=== PATIENT | female | born 1955 | race Caucasian/White ===

== ENCOUNTER → 2016-03-14 | Outpatient (CLI) | payer OTHER | END | disposition home or self-care (01) | LOC: MMGSC 10:57 | PROVIDERS: ATTEND Family Medicine | DX: N39.0 Urinary tract infection, site not specified (principal) | CPT/HCPCS: 87086 ==

== ENCOUNTER → 2016-12-27 | Outpatient (CLI) | payer MEDICARE ==
[2016-12-27 19:25] LABS: Basophils % (A) 0 %; CH 29.6; CHCM 32.9; Eosinophils # (A) 0.2 k/uL (0-0.7); Eosinophils % (A) 4 %; HCT 43.5 % (34.0-46.0); HDW 2.34; HGB 14.4 gm/dL (11.4-16.0); Luc # (Auto) 0.11; Luc % (Auto) 2; Lymphocytes # (A) 2.1 k/uL (1.0-4.8); Lymphocytes % (A) 31 %; MCH 29.9 pg (25.0-35.0); MCV 90.4 fL (80.0-100.0); Mean Platelet Volume 7.2; Monocytes # (A) 0.3 k/uL (0-1.0); Monocytes % (A) 4 %; Neutrophils % (A) 59 %; RBC 4.82 m/uL (3.80-5.40); RDW 12.4 % (11.5-15.5); WBC 6.7 k/uL (3.8-10.6); WBC (Perox) 6.94
[2016-12-27 19:35] LABS: ALT 32 U/L (9-52); AST 21 U/L (14-36); Alkaline Phosphatase 68 U/L (38-126); Amylase 109 U/L (30-110); Anion Gap 7 mmol/L; Blood Urea Nitrogen 15 mg/dL (7-17); Calcium 9.6 mg/dL (8.4-10.2); Carbon Dioxide 28 mmol/L (22-30); Chloride 107 mmol/L (98-107); Cholesterol 264 mg/dL (<200); Glucose 94 mg/dL (74-99); HDL Cholesterol 72 mg/dL (40-60); Non-African American GFR(MDRD) >60 (>60 ml/min/1.73 sqM); Potassium 4.5 mmol/L (3.5-5.1); Sodium 142 mmol/L (137-145); Total Bilirubin 0.7 mg/dL (0.2-1.3); Total Protein 6.6 g/dL (6.3-8.2)
== END | disposition home or self-care (01) ==
LOC: MMGSC 10:24
PROVIDERS: ATTEND Family Medicine
DX: Z00.00 Encounter for general adult medical examination without abnormal findings (principal); R53.83 Other fatigue
CPT/HCPCS: 36415; 80053; 80061; 82150; 82306; 82607; 83690; 84439; 84443; 85025

== ENCOUNTER → 2018-04-06 | Outpatient (CLI) | payer MEDICARE, OTHER ==
[2018-04-06 14:18] VITALS: BP 133/79; PULSE 68; RESP 16; TEMP 99; BMI 21.9
--- NOTE | 2018-04-06 15:06 | P.GSHP ---
History of Present Illness H&P Date: 04/06/18 Chief Complaint: abnormal left breast mammogram Suha is a 63-year-old white female who presents for breast evaluation. On 1618 she underwent a bilateral screening mammogram. On this mammogram some microcalcifications were seen in the anterior portion of the left breast at the 12 o'clock position. Magnification views were correct requested. She had magnification views of the left breast and 120 919. This revealed in the 1 o' clock position microcalcifications at an anterior depth. There was somewhat circular and possibly early developing oral cyst. However because these were indeterminant it was recommended a repeat mammogram in 6 months time be performed. The patient has not noted any changes in her breast. She does not note any lumps or masses in her breasts. She does not complain of any nipple discharge or skin changes. She has no history of any recent trauma or infection of the breast. The patient drinks 2 cups of coffee per day approximately 20 ounces. She does not drink tea or soda. She eats chocolate twice a week. She does not smoke and she is not exposed to secondhand smoke. Angélica Model: 1.7% life time risk 7.7% Family History: father: colon cancer paternal grandmother: breast cancer Hormonal History: menarche: 13 : 2, 2 children, first born at 28, breast fed: yes menopause: hysterctomy early 30's BCP: none hormones: none Past surgical history: 1. Hysterectomy done for endometriosis. Took one ovary 2. Back surgery 3. appendix 4. RK on eyes Past Medical History: none Social History: smoke: none 'alcohol: none drugs: none - Constitutional Constitutional: Denies chills, Denies fever - EENT Comment: wears glasses RK surgery Eyes: denies blurred vision, denies pain Ears: bilateral: decreased hearing, tinnitus Ears, nose, mouth and throat: Denies headache, Denies sore throat - Breasts Breasts: bilateral: as per HPI - Cardiovascular Cardiovascular: Denies chest pain, Denies shortness of breath - Respiratory Respiratory: Denies cough, Denies 7 - Gastrointestinal Comment: has had a colonoscopy in 2011 spots on pancrease being followed, left adrenal lesion being followed elevated lipase Gastrointestinal: Denies abdominal pain, Denies diarrhea, Denies nausea, Denies vomiting - Genitourinary (Female) Comment: noted two years ago Genitourinary: Reports hematuria, Denies dysuria - Menstruation Menstruation: Reports post hysterectomy - Musculoskeletal Comment: back pain related to spinal stenosis scolosis arthritis DJD - Integumentary Comment: history of shingles Integumentary: Denies pruritus, Denies rash - Neurological Neurological: Reports numbness, Reports weakness - Psychiatric Comment: anxiety in the past Psychiatric: Reports anxiety - Endocrine Endocrine: Reports fatigue - Hematologic/Lymphatic Comment: none - Allergic/Immunologic Allergic/Immunologic: Reports as per HPI Past Medical History Past Medical History: Musculoskeletal Disorder Additional Past Medical History / Comment(s): CHRONIC BACK PAIN. LEFT LEG PAIN. MASS ON PANCREAS. History of Any Multi-Drug Resistant Organisms: None Reported Past Surgical History: Appendectomy, Back Surgery, Hysterectomy Additional Past Surgical History / Comment(s): eye surgery. PAIN CLINIC PROCEDURES. Past Anesthesia/Blood Transfusion Reactions: Postoperative Nausea & Vomiting ( PONV) Past Psychological History: Anxiety Smoking Status: Never smoker Past Alcohol Use History: Rare Past Drug Use History: None Reported - Past Family History Mother Family Medical History: Deep Vein Thrombosis (DVT) Father Family Medical History: Cancer Medications and Allergies Home Medications Medication Instructions Recorded Confirmed Type Ibuprofen [Motrin] 800 mg PO Q6HR PRN 09/04/14 04/06/18 History HYDROcodone/APAP 5-325MG [Ravenel 1 tab PO Q4HR PRN 04/06/18 04/06/18 History 5-325] Allergies Allergy/AdvReac Type Severity Reaction Status Date / Time codeine AdvReac Nausea & Verified 04/06/18 14:18 Vomiting sulfamethoxazole AdvReac Nausea & Unverified 04/06/18 14:18 [From Bactrim] Vomiting trimethoprim [From Bactrim] AdvReac Nausea & Unverified 04/06/18 14:18 Vomiting Surgical - Exam Vital Signs Temp Pulse Resp BP Pulse Ox 99.0 F 68 16 133/79 99 04/06/18 14:11 04/06/18 14:11 04/06/18 14:11 04/06/18 14:11 04/06/18 14:11 - General well developed, well nourished, no distress - Eyes normal ocular movement - ENT no hearing loss, no congestion - Neck no masses, trachea midline - Respiratory normal respiratory effort, clear to auscultation - Cardiovascular Rhythm: regular Heart Sounds: normal: S1, S2 - Abdomen Abdomen: soft - Integumentary 2 skin lesions of concern noted the first lesion is on her right breast in the medial lower aspect the second is in the left back area near the bra line which appears to be a black head - Neurologic no disoriented, no combative - Musculoskeletal normal gait, normal posture - Psychiatric oriented to time, oriented to person, oriented to place, speech is normal, memory intact Breast examination: Right breast: Multi-positional exam fibrocystic changes, no dominant masses or nodules of concern The patient does have a skin lesion in the inner lower aspect of the breast for which excision has been recommended Right axilla: No adenopathy of concern Left breast: Multi-positional exam fibrocystic changes, no dominant masses or nodules of concern Left axilla: No adenopathy of concern Results Mammogram results reviewed with Dr. Thomas from radiology, the area of microcalcification in the left breast appears to be most likely benign and the plan is for repeat left breast mammogram in 6 months time Assessment and Plan Assessment: Impression: 1. Radiographic abnormality left breast 2. Family history of breast cancer 3. Fibrocystic breast changes 4. Skin changes as documented 5. History of degenerative disc disease in the back status post back surgery for spinal stenosis 6. Elevated lipase 7. Radiographic change adrenal and pancreas being followed conservatively 8. Prior history of hematuria 9. Status post hysterectomy for endometriosis in her 30s Plan: 1. Repeat left breast mammogram and physician exam in 6 months time from the radiographs 2. Patient will call if she notes any changes in her breast we have discussed that the caffeine could aggravate fibrocystic changes 3. Medical management of medical conditions 4. Excision in the office of 2 skin lesions that on her right breast and that on her mid left shoulder posterior CC: Dr. Manuel
== END | disposition home or self-care (01) ==
LOC: WWCWWP 13:33
PROVIDERS: ATTEND Surgery
DX: Z53.9 Procedure and treatment not carried out, unspecified reason (principal)

== ENCOUNTER → 2018-12-31 | Outpatient (CLI) | payer MEDICARE ==
--- NOTE | 2019-01-01 05:13 | NM ---
EXAMINATION TYPE: NM bone scan whole body DATE OF EXAM: 12/31/2018 COMPARISON: Right tibia/fibular radiographs 12/13/2018 HISTORY: 63-year-old female with right hip and leg pain, myalgia, abnormal x-ray. Technique: Delayed whole-body scanning was performed following the injection of 24.6 mCi Tc 99m MDP. Images acquired 3 hours post injection. FINDINGS: There are scattered degenerative tracer activity at the mid thoracic and lumbar spine as well as the sternoclavicular joints and right first rib and. No focal abnormal tracer accumulation along the prox imal right fibula at the site of bony protuberance on 12/13/2018 radiographs. IMPRESSION: 1. No focal increased tracer activity along the proximal right fibula at the site of bony protuberanc e on recent radiographs. A benign, sessile osteochondroma is suspected. Conservative six-month follow -up radiograph can reassess. 2. Scattered degenerative tracer activity thoracic and lumbar spine.
== END | disposition home or self-care (01) ==
LOC: RADNMMAIN 09:51
PROVIDERS: ATTEND Family Medicine
DX: M47.816 Spondylosis without myelopathy or radiculopathy, lumbar region (principal); M47.814 Spondylosis without myelopathy or radiculopathy, thoracic region
CPT/HCPCS: 78306; A9503

== ENCOUNTER → 2023-07-17 | Outpatient (CLI) | payer MEDICARE ==
--- NOTE | 2023-07-17 18:42 | CT ---
EXAMINATION TYPE: CT abdomen pelvis w con CT DLP: 1267 mGycm, Automated exposure control for dose reduction was used. DATE OF EXAM: 07/17/2023 5:16 PM COMPARISON: Ultrasound bladder 07/17/2023 CLINICAL INDICATION:Female, 68 years old with history of R10.12 LUQP R35.0 URINE FREQ R33.9 URINE RET ENTION; frequent urination/pancreas cyst TECHNIQUE: Axial CT abdomen pelvis w con;Sagittal and coronal reformats were created on a separate w orkstation. Contrast used:100 mL of Isovue 300 with IV Contrast, (none if empty) Oral contrast used: with Oral Contrast (none if empty) FINDINGS: LOWER CHEST: Unremarkable ABDOMEN LIVER: Scattered hypodense probable cysts. GALLBLADDER AND BILE DUCTS: The gallbladder surgically absent. PANCREAS: 14 mm pancreatic tail lesion additional 12 x 7 mm pancreatic body lesion. Tortuous ducts ar e seen in the pancreatic head and uncinate process. SPLEEN: Unremarkable. ADRENAL GLANDS: Partially calcified left adrenal gland possible underlying nodule present measuring u p to 13 mm. KIDNEYS AND URETERS: No evidence of hydronephrosis or renal calculus. The ureters are unremarkable. B ilateral renal cortical cysts.. PELVIS BLADDER: Unremarkable REPRODUCTIVE: Unremarkable. ABDOMEN & PELVIS STOMACH AND BOWEL: No evidence of bowel obstruction. PERITONEUM/RETROPERITONEUM: No evidence of pneumoperitoneum or free fluid. VASCULATURE: No evidence of aortic aneurysm. MUSCULOSKELETAL: 6 grade 2 anterolisthesis of L4 and L5. Discectomy at L4-L5. Partial ankylosis of th e vertebral bodies. Moderate degeneration changes throughout the remainder of the spine. LYMPH NODES: No gross evidence for lymphadenopathy. SOFT TISSUE/ABDOMINAL WALL: Unremarkable IMPRESSION: 1. Urinary bladder is grossly unremarkable. No evidence for obstructive uropathy or renal calculus. Extrarenal pelves bilaterally. No evidence for acute abdominal process. 2. Pancreatic cystic lesions possibly representing side branch intraductal papillary mucinous neopla sms versus sequela of prior pancreatitis versus other cystic neoplasms. This can be further evaluated with pancreatic mass protocol MRI with IV contrast with MRCP if not already performed. 3. Left adrenal nodule with evidence of calcifications in the adrenal gland. Findings could be seque la of prior trauma. This can be evaluated with the pancreatic pseudocysts utilizing MRI..
--- NOTE | 2023-07-17 19:46 | US ---
EXAMINATION TYPE: US bladder DATE OF EXAM: 07/17/2023 COMPARISON: CT abdomen and pelvis 07/17/2023 CLINICAL INDICATION: Female, 68 years old with history of R35.0 URINE FREQ R33.9 URINE RETENTION; Po st-void residual. TECHNIQUE: Multiple sonographic images of the bladder are obtained. FINDINGS: EXAM MEASUREMENTS: Post Void Residual Volume: 15.4 ml CARE ATTENDANT NOTES: Bladder appears anechoic. Color Doppler performed to assess ureteral jets. Bilateral Jets seen: Yes Normal Post Void Residual (less than 50ml): Yes Normal anechoic appearance of the urinary bladder. Normal postvoid residual of less than 50 mL. No fi lling defect identified. No wall thickening demonstrated. Both ureteral jets identified. IMPRESSION: Unremarkable urinary bladder with normal postvoid residual of 15.4 mL.
== END | disposition home or self-care (01) ==
LOC: RADUSWWP 12:55
PROVIDERS: ATTEND Family Medicine
DX: K86.2 Cyst of pancreas (principal); E27.8 Other specified disorders of adrenal gland; R35.0 Frequency of micturition; R33.9 Retention of urine, unspecified; R39.198 Other difficulties with micturition
CPT/HCPCS: 76857; 74177; Q9967

== ENCOUNTER → 2023-08-12 | Outpatient (CLI) | payer MEDICARE ==
--- NOTE | 2023-08-14 11:38 | MR ---
EXAMINATION TYPE: MR pancreas wo/w con DATE OF EXAM: 08/12/2023 11:08 AM CLINICAL INDICATION:Female, 68 years old with history of K86.2 pancreatic cyst; PHH, Pancreatic cyst, abnormal CT. COMPARISON: 07/17/2023 TECHNIQUE: Multiplanar multi-sequence imaging was performed without contrast. Post contrast imaging was performed. Post IV contrast subtraction images were also submitted for review. IV Contrast: 6.5 cc Gadavist FINDINGS: LOWER CHEST: No gross irregularity. ABDOMEN Liver: No evidence for hepatic steatosis or cirrhosis. Scattered high T2 signal cysts are seen throug hout the liver. Gallbladder and Bile ducts: No evidence for ductal dilation, or biliary stricture or evidence of chol edocholithiasis. The gallbladder is surgically absent. Pancreas: No ductal dilation. No evidence for solid mass. High T2 signal cyst in the pancreatic tail measuring 16 x 7 mm another more towards the splenic hilum measuring 7 mm in the pancreatic neck/body measuring 12 x 6 mm in the pancreatic head measuring 6 mm Spleen: Normal for size. Adrenal glands: Unremarkable. Kidneys: Bilateral renal cysts the largest on the right measuring up to 11 mm and on the left measuri ng up to 35 mm. These are high T2/low T1 signal. No suspicious enhancing renal neoplasms. Stomach and Bowel: No evidence for bowel wall thickening or evidence for obstruction. Retroperitoneum/Peritoneum: No evidence of pneumoperitoneum or free fluid. Vasculature: No aortic aneurysm. Musculoskeletal: The osseous structures appear intact. Fixation changes of the spine with hardware in place. Lymph Nodes: No gross evidence for lymphadenopathy. Abdominal wall: Unremarkable. IMPRESSION: 1. Pancreatic cystic lesions possibly representing sequela of prior pancreatitis versus side branch intraductal mucinous neoplasm versus other cystic neoplasms. Attention on follow-up imaging in one ye ar with MRI MRCP with contrast to ensure stability. 2. Bilateral Bosniak type I equivalent renal cysts. 3. Simple appearing subcentimeter hepatic cysts
== END | disposition home or self-care (01) ==
LOC: RADMRIMAIN 10:03
PROVIDERS: ATTEND Family Medicine
DX: K86.2 Cyst of pancreas (principal); E27.9 Disorder of adrenal gland, unspecified; K76.89 Other specified diseases of liver; N28.1 Cyst of kidney, acquired
CPT/HCPCS: 74183; A9585